=== PATIENT | female | born 2005 | race Two or more races ===

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

== ENCOUNTER 2025-07-08 16:40 | Emergency (ER) | payer MEDICAID, SELFPAY ==
[2025-07-08 16:53] VITALS: BP 116/75; PULSE 100; RESP 18; TEMP 37.4; O2SAT 99
[2025-07-08] MEDS: FAMOTIDINE 20 MG TABLET 40 MG PO (17:09)
[2025-07-08] MEDS: KETOROLAC INJ 60 MG/2 ML VIAL 30 MG IM (17:10)
--- NOTE | 2025-07-08 17:54 | PD.EDALLER ---
ED Allergic Reaction RME/HPI General Chief complaint: Allergic Reaction Stated complaint: ALLERGIC REACTION; GENERALIZED HIVES Time Seen by Provider: 07/08/25 17:01 Arrival date/time: 07/08/25 16:40 20-year-old female presents to the emergency department today with complaints of hives itching and rash ongoing since Sunday. Patient reports has been suffering with rashes since the sixth grade patient has been seen by specialist and has a referral to see a specialist once again. Patient reports no difficulty breathing no difficulty swallowing Limitations: no limitations Related Data Previous Rx's ?Medication ?Instructions ?Recorded ibuprofen 600 mg tablet 600 mg PO Q8H PRN pain #30 tabs 03/03/22 diphenhydramine HCl 25 mg capsule 25 mg PO Q8H PRN allergic symptoms 07/08/25 (Benadryl) #30 caps prednisone 10 mg tablet 30 mg (3 x 10 mg) PO BID 3 days 07/08/25 #18 tabs Allergies Allergy/AdvReac Type Severity Reaction Status Date / Time No Known Allergies Allergy Verified 07/08/25 16:44 Review of Systems Review of Systems Systems Reviewed: All systems reviewed, normal except as documented Constitutional Constitutional: Reports system reviewed and no additional complaints, except as documented, Denies fever(s) and Denies headache(s) Eyes Eyes: Reports system reviewed and no additional complaints, except as documented and Denies blurry vision ENT Ears, Nose, Mouth, and Throat: Reports system reviewed and no additional complaints, except as documented, Denies headache(s), Denies nasal congestion and Denies nasal discharge Cardiovascular Cardiovascular: Reports system reviewed and no additional complaints, except as documented, Denies chest pain and Denies dyspnea Respiratory Respiratory: Reports system reviewed and no additional complaints, except as documented, Denies chest congestion, Denies cough and Denies dyspnea Gastrointestinal Gastrointestinal: Reports system reviewed and no additional complaints, except as documented and Denies abdominal pain Integumentary/Breasts Skin/Breast: Reports system reviewed and no additional complaints, except as documented, Reports pruritus and Reports rash Neurologic Neurologic: Reports system reviewed and no additional complaints, except as documented, Reports as per HPI and Denies headache(s) Past Medical History Social History SMOKING STATUS: Never smoker ED Exam General Limitations: Present no limitations General appearance: Present alert and in no apparent distress Head Head exam: Present atraumatic, normocephalic and normal inspection Eye Eye exam: Present normal appearance, PERRL and EOMI; Absent conjunctival injection ENT ENT exam: Present normal exam, normal oropharynx and mucous membranes moist Neck Neck exam: Present normal inspection, full ROM and trachea midline Chest Chest inspection: Present normal inspection and symmetric chest wall rise Respiratory Respiratory exam: Present normal lung sounds bilaterally; Absent respiratory distress Cardiovascular Cardiovascular exam: Present regular rate, normal rhythm and normal heart sounds Abdominal Exam Abdominal exam: Present soft and normal bowel sounds; Absent distention, tenderness, guarding, rebound or rigidity Extremities Exam Extremities exam: Present normal inspection and full ROM Back Exam Back exam: Present normal inspection and full ROM Neurological Exam Neurological exam: Present alert, oriented X3, CN II-XII intact, normal gait and reflexes normal; Absent motor sensory deficit Psychiatric Psychiatric exam: Present normal affect and normal mood Skin Skin exam: Present warm, dry, intact, normal color and rash Course Quality Measures none Orders Category Date Time Status DiphenhydrAMINE INJ [Benadryl Inj] Med 07/08/25 17:01 Discontinued 50 mg IM X1 ONE Famotidine [Pepcid] Med 07/08/25 17:01 Discontinued 40 mg PO X1 ONE Ketorolac Inj [Toradol Inj] Med 07/08/25 17:01 Discontinued 30 mg IM X1 ONE Vital Signs Vital signs: Vital Signs Temperature 99.3 F 07/08/25 16:53 Pulse Rate 100 07/08/25 16:53 Respiratory Rate 18 07/08/25 16:53 Blood Pressure 116/75 07/08/25 16:53 Pulse Oximetry (%) 99 07/08/25 16:53 Oxygen Delivery Method Room Air 07/08/25 16:53 O2 saturation 99% room air within normal limits Allergic Reaction MDM Narrative MDM Narrative:: 20-year-old female presents to the emergency department today with complaints of hives itching and rash ongoing since Sunday. Patient reports has been suffering with rashes since the sixth grade patient has been seen by specialist and has a referral to see a specialist once again. Patient reports no difficulty breathing no difficulty swallowing On exam patient does have upper lip swelling and generalized urticarial type rash Symptoms highly consistent with allergic reaction Patient has no evidence of anaphylaxis Patient treated here with medication At time reevaluation patient is significantly better patient we discharged home at this time Did explain to the patient she should keep her appointment with specialist for worsening symptoms or concerns return to the ER immediately Patient data External records reviewed:: [facility] previous records Clinical information provided by:: patient Social determinants that could affect healthcare access:: none Patient has the following chronic illnesses:: Rash, allergic reaction How is presenting disease/condition affected by chronic disease/condition?: caused by Evaluation data The following diagnostics were reviewed and interpreted by me:: other (specify) Lab and/or radiology exams considered but not ordered:: Considered not ordered Interpretation Summary: N/A Medications / Prescriptions Medications or Prescriptions considered but not ordered:: Given Medication administrations:: Medication Administration History Discontinued Medications Diphenhydramine HCl (Diphenhydramine Inj 50 Mg/Ml Vial) 50 mg IM X1 ONE Stop: 07/08/25 17:02 Last Admin: 07/08/25 17:10 Dose: 50 mg Documented By: OA Famotidine (Famotidine 20 Mg Tablet) 40 mg PO X1 ONE Stop: 07/08/25 17:02 Last Admin: 07/08/25 17:09 Dose: 40 mg Documented By: OA Ketorolac Tromethamine (Ketorolac Inj 60 Mg/2 Ml Vial) 30 mg IM X1 ONE Stop: 07/08/25 17:02 Last Admin: 07/08/25 17:10 Dose: 30 mg Documented By: OA Given Consultations Consultation(s) initiated? (list below): No Diagnosis Differential Diagnosis allergic reaction: anaphylaxis, allergic reaction, angioedema and contact dermatitis Most likely diagnosis given after review of the tests above:: Allergic reaction Admission Indicated Admission indicated?: not indicated Admission Request Was there a request for admission?: No Disposition Plan Disposition Plan: Discharge Discharge Attestation Discharge Attestation: The patient and all family members were given an opportunity to ask questions and understood the discharge instructions. Discharge instructions specifically effects, indications for sooner follow up or return to the emergency department, and the expected course of current diagnosis. Patient condition: Stable Discharge Plan Plan Patient Disposition: HOME (Self Care) Discharge Disposition comment: Stable Prescriptions/Referrals Prescriptions/Med Rec: New prednisone 10 mg tablet 30 mg PO BID 3 Days Qty: 18 0RF diphenhydramine HCl [Benadryl] 25 mg capsule 25 mg PO Q8H PRN (Reason: allergic symptoms) Qty: 30 0RF No Action ibuprofen 600 mg tablet 600 mg PO Q8H PRN (Reason: pain) Qty: 30 0RF Referrals: Josef Jaime MD [Primary Care Provider] - In 1 week Problem List Clinical Impression: Allergic reaction, Urticaria Patient/Caregiver Discharge Instructions Education Materials: ED Hives (Adult) Additional Instructions: Please follow up with your primary care doctor in the next 24-48hrs for any worsening symptoms return here immediately Print Language: Ivorian Stand Alone Forms: Sadie Award Info., Work/School Release, Patient Portal Info Letter PA/CUSTOMER SUPPORT REPRESENTATIVE Supervising Physician PA/CUSTOMER SUPPORT REPRESENTATIVE Supervising Physician: Dr. Suero
== END 2025-07-08 18:30 | disposition home or self-care (01) ==
PROVIDERS: Emergency Provider Emergency Medicine; PCP Obstetrics & Gynecology
DX: L50.0 Allergic urticaria (principal)
CPT/HCPCS: 96372; 99282; J1200; J1885; A9270